=== PATIENT | male | born 1945 | race Caucasian/White ===

== ENCOUNTER 2021-02-07 06:59 | Day surgery (SDC) | payer OTHER ==
[~2021-02-07] VITALS: Ht 184 cm; Wt 76.0 kg
[~2021-02-07 06:59] MED LIST: ATEN25 PO; Aspirin325 MG PO; CHLO25B PO
--- NOTE | 2021-02-07 07:57 | NUR ---
Ambulatory in Day Surgery History, Chart, Medications and Allergies reviewed before start of procedure.Patient confirms NPO status and agrees with scheduled surgery. Patient reports completing Chlorhexadine shower X2 prior to admission to hospital.Surgical site prepped with 2% Chlorhexidine cloth wipe.
--- NOTE | 2021-02-07 10:32 | NUR ---
FOLDED 4X4 GAUZE DRSG WITH OCCLUSIVE TRANSPARENT DRSG TO RIGHT AXILLA. PATIENT DENIES PAIN AND NAUSEA. NO C/O. REPORTS HAVING HIGH BP ON A NORMAL BASIS AND THIS IS NOT NEW AND IS MANAGED BY HIS [facility] PROVID[facility].
--- NOTE | 2021-02-07 10:35 | NUR ---
TOLERATING SIPS OF GRAPE JUICE.
--- NOTE | 2021-02-07 11:07 | NUR ---
NO SWELLING, ERYTHEMA, DRAINAGE, BRUISING NOTED TO RIGHT AXILLA SURGERY SITE. GAUZE AND TRANSPARENT DRSG. INTACT. VSS. NO C/O. Discharge instructions reviewed with patient. Patient verbalizes understanding. Copy given to patient to take home. Patient States Post-Procedure ride home has been arranged with his friend, who is unreachable by phone currently.
--- NOTE | 2021-02-07 11:08 | NUR ---
REPORT GIVEN TO MAGGIE LAMB RN.
--- NOTE | 2021-02-07 11:19 | NUR ---
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 allowed to get dressed at this time.
[2021-02-07 11:25] LABS: Performing Lab SYMBIODX; Test Name RULE OUT LYMPHO
--- NOTE | 2021-02-07 11:56 | NUR ---
1152- PATIENT'S RIDE HOME ARRIVED. VSS. TRANSPORT TO PRIVATE CAR VIA W/C. PRESCRIPTION GIVEN TO PATIENT TO FILL.
== END 2021-02-07 11:52 | disposition home or self-care (01) ==
LOC: ORSCMMR 06:59 → ORD 08:30 → ORSCMMR 11:52
PROVIDERS: Surgery
PROC: 07B50ZX Excision of Right Axillary Lymphatic, Open Approach, Diagnostic (ICD-10-PCS; principal; 2021-02-07 08:30)
DX: C96.9 Malignant neoplasm of lymphoid, hematopoietic and related tissue, unspecified (principal); Z79.899 Other long term (current) drug therapy; Z79.82 Long term (current) use of aspirin; I10 Essential (primary) hypertension; Z86.73 Personal history of transient ischemic attack (TIA), and cerebral infarction without residual deficits; G51.0 Bell's palsy
CPT/HCPCS: 87071; 87075; 87102; 87205; 88184; 88185; 88305; 88341; 88342; J0690; J1100; J2250; J2405; J2704; J3010; J7120

== ENCOUNTER → 2021-04-07 | Outpatient (CLI) | payer OTHER | END | disposition home or self-care (01) | LOC: LAB 16:37 → LAB SHORT 16:37 | DX: D48.5 Neoplasm of uncertain behavior of skin (principal) | CPT/HCPCS: 87070; 87205 ==

== ENCOUNTER → 2021-04-07 | Outpatient (CLI) | payer OTHER | LOC: LAB 07:18 → LAB SHORT 07:18 | DX: L85.8 Other specified epidermal thickening (principal) | CPT/HCPCS: 88108; 88305 ==

== ENCOUNTER 2021-07-31 16:29 | Emergency (ER) | payer OTHER ==
[~2021-07-31] VITALS: Ht 182.9 cm; Wt 73.5 kg
[2021-07-31] MEDS ORDERED: AMOCLA875 PO (16:46)
[2021-07-31] MEDS ORDERED: ACALABRUTINIB PO (16:46)
[2021-07-31] MEDS ORDERED: LIDO700A20 TOP (16:47)
[2021-07-31] MEDS ORDERED: FERSU300 PO (16:47)
[2021-07-31] MEDS ORDERED: OXYC5 PO (16:48)
== END 2021-07-31 19:05 | disposition home or self-care (01) ==
LOC: ER 16:29
DX: G89.29 Other chronic pain (principal); M54.9 Dorsalgia, unspecified
CPT/HCPCS: 99283; A9270